=== PATIENT | female | born 1940 | race Caucasian/White ===

== ENCOUNTER 2024-01-12 09:19 | Day surgery (SDC) | payer MEDICARE, OTHER, SELFPAY ==
--- NOTE | 2024-01-12 | PATH_ITS ---
[facility] Accession Number: [id number] No. of containers..01 Tissue . 01 Material submitted: . rectum - RECTAL POLYP . 01 Diagnosis: Colon, rectal, polyp biopsy: Hyperplastic polyp. TXN 01/14/2024 1502 Local . 01 Electronically signed: . Delmy Dotson MD, Pathologist NPI- [id number] . 01 Gross description: . Received in formalin with two patient identifiers and rectal polyp, is a single hoang soft tissue fragment, 0.2 cm in greatest dimension. Submitted in A1. ([id number]) /MRV 01/13/2024 1821 Local . 01 Pathologist provided ICD-10: Z86.010 . 01 CPT . 943410 Specimen Comment: A courtesy copy of this report has been sent to [phone] Performed at: [address] [facility] [address], [place], [place] [id number] MD Garrett Garcia MD Phone: [phone]
[2024-01-12 09:48] VITALS: BP 120/68; PULSE 65; RESP 15; TEMP 36.8; O2SAT 97
--- NOTE | 2024-01-12 09:54 | PM.HP.1 ---
History of Present Illness History of Present Illness Date Patient Seen: 01/12/24 Time Patient Seen: 09:54 Chief complaint: SDC Narrative: 83-year-old with a history of unknown histology polyps here for surveillance. She has a family history of colon cancer in 2 second-degree relatives. 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 Meds Home Medications and Allergies Home Medications Medication Instructions Recorded Confirmed Type estradiol 2 mg (7.5 mcg/24 hour) 2 vag ring vaginal DAILY 01/12/24 01/12/24 History vaginal ring (Estring) Allergies Allergy/AdvReac Type Severity Reaction Status Date / Time No Known Drug Allergies Allergy Verified 01/12/24 09:41 Review of Systems Review of Systems ROS: Yes All systems reviewed with the patient and are negative except as otherwise documented Exam Const General: cooperative HENMT Head: normal to inspection Eyes General: appearance normal, both eyes and all related structures Neck Neck: normal visual inspection Chest Chest: normal inspection of the chest Resp Effort & Inspection: normal respiratory effort Cardio Rate: regular rate GI Inspection: normal to inspection Skin General: no rashes or lesions noted Neuro General: patient alert and patient awake Extrem General: normal to inspection and no pedal edema Psych Appearance: grossly normal Assessment & Plan Assessment & Plan narrative: 83-year-old female with a family history of colon cancer and a personal history of colon polyps. Colonoscopy is pursued today.
--- NOTE | 2024-01-12 09:55 | PM.PREOP ---
Pre-operative Note Interval Note History & Physical reviewed/Exam performed by Physician: Yes Changes to H&P: No ASA Class (for procedural sedation): II
[2024-01-12] MEDS: LACTATED RINGERS 1,000 ML 42 ML IV (09:58)
[2024-01-12 11:40] VITALS: BP 93/49; PULSE 59; RESP 18; TEMP 36.1; O2SAT 98
--- NOTE | 2024-01-12 11:42 | P.OP.COLON_ITS ---
Operative Date/Time/Diagnoses Date of procedure: 01/12/24 Time of procedure: 11:42 Pre-op diagnosis: Personal history of colon polyps Post-op diagnosis: same Procedure & Clinicians Study performed: Colonoscopy with cold snare polypectomy Same procedure as scheduled: Yes Indications: Personal history of colon polyps Surgeon: Juan Miguel Lauren Procedure Notes SCOAP/Timeout: Done Procedure in detail: After the risks and benefits were explained, written and verbal informed consent was obtained. The patient was brought into the procedure room and placed into the left lateral decubitus position. Please see anesthesia notes for sedation details. Digital rectal examination was accomplished. The scope was introduced into the patient and advanced under direct visualization to the cecum as identified by the appendiceal orifice and ileocecal valve. The scope was slowly withdrawn to carefully examine the mucosa for any defects or lesions. Comprehensive imaging was accomplished throughout the rectum including the den daily line. The colon was decompressed, the scope was then removed from the patient who tolerated the procedure well. Pediatric colonoscope Bowel prep adequate Scope withdrawal time: 10 minutes Sedation minutes: 43 Complications: none Impression: The patient had an exceedingly difficult colonoscopy with respect to navigation. It took us 35 minutes to arrive in cecum secondary to marked tortuosity and redundancy. This required multiple position changes, application of abdominal pressure, and intermittent use of the stiffening johanna. There was a diminutive polyp in the rectum removed with cold snare. Otherwise no significant mucosal pathology was appreciated. Endoscopic diagnosis 1. Challenging navigation 2. Tortuous colon 3. Redundant colon 4. Colon polyp Post-procedure Plan for aftercare: 1. Await histology. 2. In light of a family history and personal history of colon polyps, the next exam would typically be recommended for 5 years time. Therefore any further colonoscopy should really be for symptoms only and not routine screening. Disposition: PACU
[2024-01-12 11:45] VITALS: BP 91/25; PULSE 59; RESP 21; O2SAT 99
[2024-01-12 11:51] VITALS: BP 115/56; PULSE 59; RESP 19; O2SAT 97
[2024-01-12 12:02] VITALS: BP 137/57; PULSE 59; RESP 16; TEMP 36.1; O2SAT 99
== END 2024-01-12 12:12 | disposition home or self-care (01) ==
PROVIDERS: Referring Provider Internal Medicine Gastroenterology; Visit Provider Internal Medicine Gastroenterology
PROC: 0DJD8ZZ Inspection of Lower Intestinal Tract, Via Natural or Artificial Opening Endoscopic (ICD-10-PCS; CPT 45378; principal; 2024-01-12 11:00)
DX: Z12.11 Encounter for screening for malignant neoplasm of colon (principal); Z86.010 Personal history of colon polyps; K62.1 Rectal polyp
CPT/HCPCS: 45385; J2704